=== PATIENT | male | born 1955 | race Caucasian/White ===

== ENCOUNTER → 2016-12-25 | Outpatient (REF) ==
[~2016-12-25] MED LIST: CEPHALEXIN500 M1 PO; GLUCOPHAGE500 MG/TAB PO; GLUCOTROL 5M5 MG/TAB PO; METFORMIN ER500 MG PO; VALIUM 2MG T2 MG/TAB PO; ZOCOR40 MG PO
== END ==
LOC: WSOH 13:18
DX: Z01.10 Encounter for examination of ears and hearing without abnormal findings (principal)

== ENCOUNTER → 2021-06-04 | Outpatient (CLI) | payer MEDICARE, BC | LOC: DIA.ED 10:43 | DX: E11.65 Type 2 diabetes mellitus with hyperglycemia (principal); Z79.4 Long term (current) use of insulin; E78.5 Hyperlipidemia, unspecified | CPT/HCPCS: G0108 ==

== ENCOUNTER → 2023-04-30 | Outpatient (CLI) | payer MEDICARE, BC | LOC: COL.RAD 06:49 | DX: M51.36 Other intervertebral disc degeneration, lumbar region (principal); M47.816 Spondylosis without myelopathy or radiculopathy, lumbar region; M48.061 Spinal stenosis, lumbar region without neurogenic claudication ==